=== PATIENT | male | born 1980 | race Caucasian/White ===

== ENCOUNTER 2019-06-24 21:01 | Emergency (ER) | payer OTHER ==
[2019-06-24 21:07] VITALS: BP 144/95; PULSE 82; TEMP 98.3; BMI 29.0
--- NOTE | 2019-06-24 21:08 | PDOC ---
Rapid Medical Evaluation Chief Complaint: Rash Time Seen by Provider: 06/24/19 21:05 Medical Evaluation: Allergies Allergy/AdvReac Type Severity Reaction Status Date / Time No Known Allergies Allergy Verified 03/26/13 20:39 06/24/19 21:05 I have performed a brief in-person evaluation of this patient. The patient presents with a chief complaint of: rash, lightheadedness, generalized malaise. No rash now, took benadryl and rash resolved. no fever/ chills, no NVD, no CP/SOB. Pertinent physical exam findings: No rash The patient will proceed to the ED for further evaluation. Discharge Disposition - Diagnosis Rash - Referrals - Patient Instructions - Post Discharge Activity
--- NOTE | 2019-06-24 21:45 | PDOC ---
History of Present Illness - General Chief Complaint: Rash Stated Complaint: RASH ALL OVER BODY Time Seen by Provider: 06/24/19 21:05 - History of Present Illness Initial Comments: 06/24/19 21:47 39-year-old male without comorbidities presents for evaluation of bilateral upper and lower extremity numbness in association with a rash which resolves with Benadryl over the last week. No systemic symptoms. Past History - Past Medical History Allergies/Adverse Reactions: Allergies Allergy/AdvReac Type Severity Reaction Status Date / Time No Known Allergies Allergy Verified 06/24/19 21:08 Home Medications: Ambulatory Orders Ciprofloxacin [Cipro] 500 mg PO BID #14 tablet 03/27/13 Methylprednisolone [Medrol Dose [place]] 4 mg PO ASDIR #21 tablet 06/24/19 COPD: No - Immunization History Immunization Up to Date: Yes - Suicide/Smoking/Psychosocial Hx Smoking Status: Yes Smoking History: Unknown if ever smoked Have you smoked in the past 12 months: No Number of Cigarettes Smoked Daily: 2 Information on smoking cessation initiated: No Hx Alcohol Use: No Drug/Substance Use Hx: No Review of Systems - Review of Systems Constitutional: No: Fever Integumentary: Yes: Rash Neurological: Yes: Paresthesia *Physical Exam - Vital Signs Last Vital Signs Temp Pulse Resp BP Pulse Ox 98.3 F 82 16 144/95 16 L 06/24/19 21:05 06/24/19 21:05 06/24/19 21:05 06/24/19 21:05 06/24/19 21:05 - Physical Exam Comments: 06/24/19 21:46 HEAD: NC/AT EYES: Conjuntiva clear Ears: Canals and TM's normal NOSE: No d/c THROAT: Moist mucous membrances, oral pharanx clear, uvula midline NECK: Supple without adenopathy CARDIAC: S1 S2 LUNGS: CTA Full and Equal breath sounds ABDOMEN: Soft NT ND MS: Full ROM in all joints without edema NEUROLOGIC: No gross sensory or motor deficits, NVID SKIN: Normal color and temperature no lesions or areas diffuse nonspecific rash to face which appears to be resolving wheals. Medical Decision Making - Medical Decision Making 06/24/19 21:46 39-year-old male without comorbidities with nonspecific dermatitis type rash will treat potential Dosepak. He also has numbness in association with the rash I will have him follow-up with neurology. He is in agreement with the plan. Instructions given on Medrol Dosepak. *DC/Admit/Observation/Transfer Diagnosis at time of Disposition: Rash, Numbness - Discharge Dispostion Disposition: HOME Condition at time of disposition: Stable Decision to Admit order: No - Prescriptions Prescriptions: Methylprednisolone [Medrol Dose [place]] 4 mg PO ASDIR #21 tablet - Referrals Referrals: Bogdan Dowling MD [Staff Physician] - Tyree Bermudez MD [Staff Physician] - - Patient Instructions Additional Instructions: Please start steroid pack in the morning. Take the medication as directed. Avoid anti-inflammatory such as Advil Motrin Aleve and ibuprofen. Return to the emergency room should symptoms worsen or go unresolved and follow-up with neuro or spine surgery without fail in 1-2 days for further evaluation and treatment options. Follow-up with your primary care doctor for further evaluation and treatment of the rash and for neurologist follow-up in 1-2 days without fail for further evaluation and treatment of your numbness. Both physician should be followed up with within 1-2 days without fail. - Post Discharge Activity
== END 2019-06-24 21:52 | disposition home or self-care (01) ==
LOC: JERFT 21:01
DX: R21 Rash and other nonspecific skin eruption (principal); R20.0 Anesthesia of skin
CPT/HCPCS: 99281-25